=== PATIENT | female | born 1960 | race Caucasian/White ===

== ENCOUNTER 2024-12-12 11:00 | Outpatient (RCR) | payer SELFPAY, OTHER ==
--- NOTE | 2024-10-28 14:22 | HP.PTEVAL ---
Patient's Visit Information Visit Information Visit Information: SABRINA TINEO is a 64 year old F referred to Physical Therapy by Dr. Alexis Serrano MD with a diagnosis of UNILATERAL PRIMARY OSTEOARTHRITIS ,LEFT KNEE VALGUS. Date of Evaluation: 10/28/24 Physical Therapist: Julien Orozco, PT, Cert MDT, OCS Visit Plan Frequency: 2x /Week Duration: 4 Weeks Plan: PT INTERVENTIONS AQUATIC THERAPY ROM ,FLEXABLITY ,STRENGTHENING EX'S QUADS/HAMS/HIP AND FUNCTIONAL STRENGTHENING Subjective Subjective: This 64 y/o female presents to physical therapy with left knee pain ,left unilateral primary osteoarthritis . Patient has left knee pain ~ 6 year and progressively worse for [address] Serrano 2 days ago .X-rays severe DJD . Patient needs TKA and needs A 1C dropped before cortisone. At this time . wants a HEP. Patient can't afford co-pay and insurance. . Patient pain located global medal and lateral. Aggravating factors kneeling ,squatting ,stairs stand on concrete. Alleviating factors aleve. Denies paresthesia/tingling in left thigh. Patient sleeps okay. Stairs one step at time. Patient condition affects QOL and function. Patient goals to decrease pain. SOCIAL: VOCATION: Diary Pain Left Knee: Pain Intensity (Out of 10): 3 Pain Intensity Range: 10 Objective Objective: POSTURE: mild knee valgus GAIT: ambulates with antalgic gait left PALPATION: medial and lateral joint line NEURO: denies paresthesia/tingling AROM: supine knee flexion 3 -110 degrees supine MMT: quads/hams 4-/5 ,hip flexion 4-/5 ,.4-/5 abduction ankle 4/5 STAIRS: one step with rail Special Tests R Knee Valgus - MCL: Negative R Knee Varus - LCL: Negative R Knee Patellar Apprehension - PFS: Negative R Knee Patellar Grind - PFS: Negative Balance/Special Test Scores Lower Extremity Functional Score: 41 Goals Goal 1:: Patient to be I with HEP and Aquatic therapy Goal Time Frame: 4-6 Weeks Goal 2:: Patient to improve AROM knee flexion 0-115 degrees to improve function Goal Time Frame: 4-6 Weeks Goal 3:: Patient to improve strength quads/hams /hip by 4/5 to improve function. Goal Time Frame: 4-6 Weeks Goal 4:: Patient to improve LFES score by 5 points to improve QOL and function Goal Time Frame: 4-6 Weeks Goal 5:: Patient to demonstrate 50% improvement with less pain and improved function Goal Time Frame: 4-6 Weeks Rehabilitation Potential Physical Therapy Diagnosis: This patient has left knee pain with DJD with decrease ROM ,strength ,impairs gait and ADLS thus benefiT from skilled PT Rehabilitation Potential: Fair Anticipated Interventions Patient/Client Instruction: Educate patient on: Condition and Plan of Care For the Purpose of:: To decrease pain, To decrease swelling/inflammation, To improve muscle performance and motor function, To improve ability to perform ADL's, To increase tolerance to activity/condition/position, To improve ability of physical actions for home/community/work/leisure, To improve gait and locomotor functions, To improve health of tissue, To decrease soft tissue restriction and To improve tolerance to ADL's Therapeutic Exercise to Include: Strength training, Postural training, Flexibilty training, In an aquatic setting and Active ROM Comment: QUADS/HAMS/HIP For the Purpose of:: To decrease pain, To increase ROM, To improve muscle performance and motor function, To improve ability to perform ADL's, To increase tolerance to activity/condition/position, To decrease level of supervision to perform tasks, To improve health of tissue, To decrease soft tissue restriction, To increase flexibility/ROM and To improve tolerance to ADL's Text: Thank you for the opportunity to evaluate your patient. For Medicare and Medicare HMO plans, please review the plan of care and approve it. It will need to be FAXED BACK to us at [phone] for Medicare purposes. For Medicare only, by signing this I certify the plan of care. Please let me know if there are questions or concerns regarding this plan of care. Physician Signature: Date:
--- NOTE | 2024-12-12 12:49 | HP.PTDCSUM ---
Discharge Summary D/C summary: It has been my pleasure to treat SABRINA TINEO referred by Dr. Alexis Serrano MD, with the diagnosis of UNILATERAL PRIMARY OSTEOARTHRITIS ,LEFT KNEE VALGUS for a total of 5 visit(s). Discharge Date: 12/12/24 Please see the following information for a summary of their discharge status. Subjective Subjective: Doing well ,ready do on own Will do ex's in [facility] Pain Left Knee: Pain Intensity (Out of 10): 4 Overall Improvement % Improvement: 75 Objective Objective/Function: POSTURE: mild knee valgus GAIT: ambulates with antalgic gait left PALPATION: medial and lateral joint line NEURO: denies paresthesia/tingling AROM: supine knee flexion 0-125 degrees supine MMT: quads/hams 4/5 ,hip flexion 4/5 ,.4-/5 abduction ankle 4/5 STAIRS: one step with rail Goals Goal 1:: Patient to be I with HEP and Aquatic therapy Goal Progress: Goal Met Goal 2:: Patient to improve AROM knee flexion 0-115 degrees to improve function Goal Progress: Goal Met Goal 3:: Patient to improve strength quads/hams /hip by 4/5 to improve function. Goal Progress: Goal Met Goal 4:: Patient to improve LFES score by 5 points to improve QOL and function Goal Progress: Goal Met Goal 5:: Patient to demonstrate 50% improvement with less pain and improved function Plan Plan: D/C D/C Information Discharge Comments: HEP d/c sentence: If there are questions or concerns regarding this patient's physical therapy, please feel free to call me at [phone]. Thank you for the referral of this patient. Sincerely, Julien Orozco, PT, Cert MDT, OCS Balance/Gait/Functional tests Balance/Special Test Scores Lower Extremity Functional Score: 47 Improvement % Improvement: 75
== END 2024-12-12 12:57 | disposition home or self-care (01) ==
LOC: PT 11:00
PROVIDERS: PCP Family Medicine; Referring Provider Specialist; Visit Provider Specialist
DX: M17.12 Unilateral primary osteoarthritis, left knee (principal); M25.562 Pain in left knee; M21.062 Valgus deformity, not elsewhere classified, left knee
CPT/HCPCS: 97110; 97113; 97162; 97530